=== PATIENT | male | born 1950 | race Caucasian/White ===

== ENCOUNTER 2018-03-26 08:55 | Inpatient (IN) | payer MEDICARE ==
[~2018-03-26] VITALS: Ht 180.3 cm; Wt 96.9 kg
[2018-03-26] VITALS (9 sets, daily range): BP systolic 110–155; BP diastolic 55–81; PULSE 106–115; RESP 18–24; TEMP 97.7–98.4; O2SAT 90–96
[~2018-03-26 08:55] MED LIST: ADVAI250I PO; ALBU1AER INH; ATOR10 PO; DOXY100T PO; LYRI200C PO; NICO14DI18 TD; NICO21DI24 TD; NICO7DIS18 TD; PLAV75TA PO; PRED20 PO; SPIRCAP INH
[2018-03-26] MEDS ORDERED: UMEC1AER INH (09:05)
[2018-03-26] MEDS ORDERED: ATOR10TA15 PO (09:05)
[2018-03-26] MEDS ORDERED: GABA800T PO (09:06)
--- NOTE | 2018-03-26 09:08 | PD ---
HPI Chief Complaint: Respiratory Symptoms Time Seen by Provider: 09:08 Travel History International Travel<30 days: No Contact w/Intl Traveler<30days: No Traveled to known affect area: No History of Present Illness HPI 67-year-old male came to the emergency room with history of shortness of breath that got really worse this morning when he woke up. Patient has history of COPD and says he has been coughing and bringing out greenish sputum for past few days. He has been using his inhaler but today the inhaler did not help. Patient is 1 pack per day smoker. His last ER visit and hospitalization was couple years ago. Patient does not require oxygen at home. His oxygen saturation was in the low 90s in triage. No history of chest pain. No history of ankle swelling. [facility] Past Medical History Narrative Medical List of his past medical, surgical, social and family history reviewed from the nursing note. Cancer: No Cardiac Catheterization: Yes Cardiovascular Problems: No High Cholesterol: Yes Chest Pain: No COPD: Yes Diabetes: No Diminished Hearing: No Gastrointestinal Disorders: No Glaucoma: No Hepatitis: No Hiatal Hernia: No Hypertension: No Neurologic: Yes (NUMBNESS IN BLE) Respiratory: Yes (COPD) Integumentary: No Immunizations Current: No Pneumonia: Yes Thyroid Disease: No Past Surgical History Other Surgery: Yes (hemorrhoidectomy) Social History Alcohol Use: Yes (occ) Tobacco Use: Yes (1 PPD) Substance Use: No Allergies-Medications (Allergen,Severity, Reaction): Coded Allergies: No Known Allergies (Unverified Adverse Reaction, Unknown, 03/26/18) Comments No known drug allergies. Reported Meds & Prescriptions Reported Meds & Active Scripts Active Reported Gabapentin 800 Mg Tab 800 Mg PO TID Atorvastatin (Atorvastatin Calcium) 10 Mg Tab 10 Mg PO HS Anoro Ellipta Inh (Umeclidinium/Vilanterol) 62.5-25 Mcg/Act Aero 1 Puff INH DAILY Narrative Medication List of his home medications reviewed from the nursing note. Review of Systems Except as stated in HPI: all other systems reviewed are Neg Respiratory: Positive: Shortness of Breath Physical Exam Narrative GENERAL: Awake, alert, moderate distress SKIN: Focused skin assessment warm/dry. HEAD: Atraumatic. Normocephalic. EYES: Pupils equal and round. No scleral icterus. No injection or drainage. ENT: No nasal bleeding or discharge. Mucous membranes pink and moist. NECK: Trachea midline. No JVD. CARDIOVASCULAR: Regular rate and rhythm. No murmur appreciated. RESPIRATORY: Decreased air entry bilaterally with end expiratory wheeze GASTROINTESTINAL: Abdomen soft, non-tender, nondistended. Hepatic and splenic margins not palpable. MUSCULOSKELETAL: No obvious deformities. No clubbing. No cyanosis. No edema. NEUROLOGICAL: Awake and alert. No obvious cranial nerve deficits. Motor grossly within normal limits. Normal speech. PSYCHIATRIC: Appropriate mood and affect; insight and judgment normal. Data Data Last Documented VS Vital Signs Date Time Temp Pulse Resp B/P (MAP) Pulse Ox O2 Delivery O2 Flow Rate FiO2 03/26/18 12:11 112 18 155/78 (103) 94 Nasal Cannula 2.00 03/26/18 09:18 98.4 Orders Orders Complete Blood Count With Diff (03/26/18 09:13) Basic Metabolic Panel (Bmp) (03/26/18 09:13) B-Type Natriuretic Peptide (03/26/18 09:13) Troponin I (03/26/18 09:13) Iv Access Insert/Monitor (03/26/18 09:13) Electrocardiogram (03/26/18 09:13) Ecg Monitoring (03/26/18 09:13) Oximetry (03/26/18 09:13) Oxygen Administration (03/26/18 09:13) Chest, Single Ap (03/26/18 09:13) Sodium Chloride 0.9% Flush (Ns Flush) (03/26/18 09:15) Methylprednisolone So Succ Inj (Solumedr (03/26/18 09:15) Albuterol-Ipratropium Neb (Duoneb Neb) (03/26/18 09:15) Sodium Chlor 0.9% 1000 Ml Inj (Ns 1000 M (03/26/18 10:15) Albuterol Neb (Albuterol Neb) (03/26/18 12:00) Admit Order (Ed Use Only) (03/26/18 13:25) Labs Laboratory Tests Test 03/26/18 09:20 White Blood Count 10.3 TH/MM3 Red Blood Count 4.17 MIL/MM3 Hemoglobin 13.4 GM/DL Hematocrit 40.1 % Mean Corpuscular Volume 96.2 FL Mean Corpuscular Hemoglobin 32.2 PG Mean Corpuscular Hemoglobin Concent 33.4 % Red Cell Distribution Width 12.6 % Platelet Count 220 TH/MM3 Mean Platelet Volume 8.4 FL Neutrophils (%) (Auto) 75.3 % Lymphocytes (%) (Auto) 12.2 % Monocytes (%) (Auto) 9.2 % Eosinophils (%) (Auto) 2.4 % Basophils (%) (Auto) 0.9 % Neutrophils # (Auto) 7.8 TH/MM3 Lymphocytes # (Auto) 1.3 TH/MM3 Monocytes # (Auto) 0.9 TH/MM3 Eosinophils # (Auto) 0.2 TH/MM3 Basophils # (Auto) 0.1 TH/MM3 CBC Comment DIFF FINAL Differential Comment Blood Urea Nitrogen 13 MG/DL Creatinine 1.10 MG/DL Random Glucose 111 MG/DL Calcium Level 9.0 MG/DL Sodium Level 139 MEQ/L Potassium Level 3.9 MEQ/L Chloride Level 107 MEQ/L Carbon Dioxide Level 27.1 MEQ/L Anion Gap 5 MEQ/L Estimat Glomerular Filtration Rate 67 ML/MIN Troponin I LESS THAN 0.02 NG/ML B-Type Natriuretic Peptide 44 PG/ML MDM Medical Decision Making Medical Screen Exam Complete: Yes Emergency Medical Condition: Yes Medical Record Reviewed: Yes Interpretation(s) Twelve-lead EKG was reviewed by me. Normal sinus rhythm, left axis deviation, nonspecific ST-T wave changes, tachycardia. Heart rate of 114 bpm. Differential Diagnosis Acute COPD exacerbation, CHF, pneumonia Narrative Course 1:28 PM patient was initially given 3 DuoNeb's [id number] with IV Solu- Medrol. Upon reassessment there was still an expiratory wheeze and he was given 2 more albuterol. I went back and reassessed him for the third time and air entry was slightly improved but oxygen saturation remained 92-93% with oxygen via nasal cannula. I asked the nurse to ambulate him on room air and oxygen sats dropped to 85%. I decided to admit the patient. I discussed the case with the hospitalist was accepted. Critical Care Narrative Aggregate critical care time was 30 minutes. Time to perform other separately billable procedures was not included in the critical care time. My time did not include minutes spent treating any other patients simultaneously or on activities that did not directly contribute to the patient's treatment. The services I provided to this patient were to treat and/or prevent clinically significant deterioration that could result in: Acute COPD exacerbation, respiratory distress, hypoxia I provided critical care services requiring my management, as noted below: Chart data review, documentation time, medication orders and management, vital sign assessments/reviewing monitor data, ordering and reviewing lab tests, ordering and interpreting/reviewing x-rays and diagnostic studies, care of the patient and discussion of the patient with the admitting physicians. Procedures EKG Prior to Arrival: No Diagnosis Primary Impression: Respiratory distress Additional Impressions: Hypoxia Acute exacerbation of chronic obstructive pulmonary disease (COPD) Admitting Information Admitting Physician Requests: it Raul Briggs MD March 26, 2018 09:08
[2018-03-26] MEDS ORDERED: SODIUM CHLORIDE 0.9% FLUSH 10 ML FLUSH IVF PRN (09:15)
[2018-03-26] MEDS ORDERED: methylPREDNISolone SOD SUCC 125 MG/2 ML VIAL IV PUSH ONE (09:15)
[2018-03-26] MEDS: RESP: ALBUTEROL 2.5 MG/IPRATROPIUM 0.5 MG NEB (SCH) INH ×3 (09:24→19:29)
[2018-03-26 09:30] LABS: AUTOMATED NEUTROPHIL # 7.8 TH/MM3 (1.8-7.7); BASOPHIL # 0.1 TH/MM3 (0-0.2); BASOPHIL % 0.9 % (0.0-2.0); EOSINOPHIL # 0.2 TH/MM3 (0-0.4); EOSINOPHIL % 2.4 % (0.0-4.0); HEMATOCRIT 40.1 % (39.0-51.0); HEMOGLOBIN 13.4 GM/DL (13.0-17.0); LYMPH % 12.2 % (9.0-44.0); LYMPHOCYTE # 1.3 TH/MM3 (1.0-4.8); MEAN CELL VOLUME 96.2 FL (80.0-100.0); MEAN CORPUSCULAR HEMOGLOBIN 32.2 PG (27.0-34.0); MEAN CORPUSCULAR HGB CONC 33.4 % (32.0-36.0); MEAN PLATELET VOLUME 8.4 FL (7.0-11.0); MONO % 9.2 % (0.0-8.0); MONOCYTE # 0.9 TH/MM3 (0-0.9); NEUT % 75.3 % (16.0-70.0); PLATELET COUNT 220 TH/MM3 (150-450); RED BLOOD COUNT 4.17 MIL/MM3 (4.50-5.90); RED CELL DISTRIBUTION WIDTH 12.6 % (11.6-17.2); WHITE BLOOD COUNT 10.3 TH/MM3 (4.0-11.0)
--- NOTE | 2018-03-26 09:57 | RADRPT ---
EXAM DATE: 03/26/2018 9:39 AM EDT AGE/SEX: 67 years / Male INDICATIONS: Short of breath. CLINICAL DATA: This is the patient's initial encounter. Patient reports that signs and symptoms have been present for 3 days and indicates a pain score of 0/10. MEDICAL/SURGICAL HISTORY: Chronic obstructive pulmonary disease. None. COMPARISON: No prior [facility] exams available for comparison. FINDINGS: A single AP view of the chest demonstrates the lungs to be symmetrically aerated without e vidence of mass, infiltrate or effusion. The cardiomediastinal contours are unremarkable. Osseous s tructures are intact. CONCLUSION: 1. Hyperaeration with interstitial changes bilaterally suggestive of COPD. 2. No acute pulmonary infiltrates. Electronically signed by: Jeffrey De León MD 03/26/2018 9:56 AM EDT
[2018-03-26 10:07] LABS: BICARBONATE 27.1 MEQ/L (21.0-32.0); GLUCOSE,RANDOM 111 MG/DL (74-106)
[2018-03-26 10:08] LABS: CHLORIDE 107 MEQ/L (98-107); SODIUM (NA) 139 MEQ/L (136-145)
[2018-03-26 10:10] LABS: GLOMERULAR FILTRATION RATE 67 ML/MIN (>89)
[2018-03-26 10:15] LABS: TROPONIN I LESS THAN 0.02 NG/ML (0.02-0.05)
[2018-03-26] MEDS ORDERED: SODIUM CHLOR 0.9% 1000 ML INJ 1,000 ML IV ONE (10:15)
[2018-03-26 10:18] LABS: BLOOD UREA NITROGEN 13 MG/DL (7-18)
[2018-03-26] MEDS: RESP: ALBUTEROL 2.5 MG/3 ML NEB (SCH) INH (11:59)
[2018-03-26] MEDS ORDERED: RESP: ALBUTEROL 2.5 MG/3 ML NEB (PRN) INH (13:45)
[2018-03-26] MEDS ORDERED: SODIUM CHLORIDE 0.9% FLUSH 10 ML FLUSH IV FLUSH PRN (13:45)
[2018-03-26] MEDS: methylPREDNISolone SOD SUCC 125 MG/2 ML VIAL IV PUSH SCH ×2 (14:53→21:32)
[2018-03-26] MEDS: ENOXAPARIN SODIUM 40 MG/0.4 ML SYRINGE SQ SCH (14:54)
[2018-03-26] MEDS ORDERED: LEVOFLOXACIN 750 MG PREMIX INJ 150 ML IV SCH (16:00)
--- NOTE | 2018-03-26 16:00 | HHI.HP ---
[facility]ician Bay Thomason M.D. Admission Diagnosis Acute COPD exacerbation, hypoxia Diagnoses: Chief Complaint: Short of breath Travel History International Travel<30 Days: No Contact w/Intl Traveler <30 Da: No Traveled to Known Affected Are: No History of Present Illness This patient is a 67-year-old gentleman with history of COPD who comes in with increased work of breathing over the last several days and worse today. Is associated with coughing and green sputum. He is using his inhaler but noted that it was progressive. He continues to smoke a pack a day although he recently started Chantix. He does not use oxygen at home and was 85% on room air here. Patient did improve somewhat with nebulized bronchodilators but still working very hard to breathe and recommended for further admission due to respiratory failure. Review of Systems Constitutional: DENIES: Diaphoretic episodes, Fatigue, Fever, Weight gain, Weight loss, Chills, Dizziness, Change in appetite, Night Sweats Endocrine: DENIES: Heat/cold intolerance, Polydipsia, Polyuria, Polyphagia Eyes: DENIES: Blurred vision, Diplopia, Eye inflammation, Eye pain, Vision loss , Photosensitivity, Double Vision Ears, nose, mouth, throat: DENIES: Tinnitus, Hearing loss, Vertigo, Nasal discharge, Oral lesions, Throat pain, Hoarseness, Ear Pain, Running Nose, Epistaxis, Sinus Pain, Toothache, Odynophagia Respiratory: COMPLAINS OF: Cough, Shortness of breath, DENIES: Apneas, Snoring , Wheezing, Hemoptysis, Sputum production Cardiovascular: COMPLAINS OF: Dyspnea on Exertion, DENIES: Chest pain, Palpitations, Syncope, PND, Lower Extremity Edema, Orthopnea, Claudication Gastrointestinal: DENIES: Abdominal pain, Black stools, Bloody stools, Constipation, Diarrhea, Nausea, Vomiting, Difficulty Swallowing, Anorexia Genitourinary: DENIES: Sexual dysfunction, Urinary frequency, Urinary incontinence, Urgency, Hematuria, Dysuria, Nocturia, Penile Discharge, Testicular Pain, Testicular Swelling Musculoskeletal: DENIES: Joint pain, Muscle aches, Stiffness, Joint Swelling, Back pain, Neck pain Integumentary: DENIES: Abnormal pigmentation, Nail changes, Pruritus, Rash Hematologic/lymphatic: DENIES: Bruising, Lymphadenopathy Immunologic/allergic: DENIES: Eczema, Urticaria Neurologic: DENIES: Abnormal gait, Headache, Localized weakness, Paresthesias, Seizures, Speech Problems, Tremor, Poor Balance Psychiatric: DENIES: Anxiety, Confusion, Mood changes, Depression, Hallucinations, Agitation, Suicidal Ideation, Homicidal Ideation, Delusions Except as stated in HPI: all other systems reviewed are Neg Past Family Social History Past Medical History COPD Tobacco dependency Vascular insufficiency Hyperlipidemia and neuropathy Past Surgical History Hernia repair Hemorrhoidectomy Left vascular stent placement Reported Medications Reviewed in the EMR, also on Chantix Allergies: Coded Allergies: No Known Allergies (Unverified Allergy, Unknown, 03/26/18) Active Ordered Medications Reviewed in the EMR Family History Mother from a stroke, father from a coal mining [facility] Social History Patient smokes a pack a day, lives alone and occasional alcohol Physical Exam Vital Signs Vital Signs Date Time Temp Pulse Resp B/P (MAP) Pulse Ox O2 Delivery O2 Flow Rate FiO2 03/26/18 14:59 112 18 152/76 (101) 94 Nasal Cannula 2.00 03/26/18 12:11 112 18 155/78 (103) 94 Nasal Cannula 2.00 03/26/18 10:18 113 18 144/81 (102) 95 Nasal Cannula 2.00 03/26/18 09:25 95 Nasal Cannula 2.00 03/26/18 09:18 98.4 115 20 142/81 (101) 90 03/26/18 09:16 20 96 Nasal Cannula 2.00 03/26/18 09:15 96 Nasal Cannula 2.00 03/26/18 09:13 90 Nasal Cannula 2.00 Physical Exam GENERAL: This is a well-nourished, well-developed patient, who is short of breath with pursed lip breathing SKIN: No rashes, ecchymoses or lesions. Cool and dry. HEAD: Atraumatic. Normocephalic. No temporal or scalp tenderness. EYES: Pupils equal round and reactive. Extraocular motions intact. No scleral icterus. No injection or drainage. ENT: Nose without bleeding, purulent drainage or septal hematoma. Throat without erythema, tonsillar hypertrophy or exudate. Uvula midline. Airway patent. NECK: Trachea midline. No JVD or lymphadenopathy. Supple, nontender, no meningeal signs. CARDIOVASCULAR: Regular rate and rhythm without murmurs, gallops, or rubs. RESPIRATORY: Tachypneic with scattered wheezes GASTROINTESTINAL: Abdomen soft, non-tender, nondistended. No hepato-splenomegaly , or palpable masses. No guarding. MUSCULOSKELETAL: Extremities without clubbing, cyanosis, or edema. No joint tenderness, effusion, or edema noted. No calf tenderness. Negative Homans sign bilaterally. NEUROLOGICAL: Awake and alert. Cranial nerves II through XII intact. Motor and sensory grossly within normal limits. Five out of 5 muscle strength in all muscle groups. Normal speech. Laboratory Laboratory Tests Test 03/26/18 09:20 03/26/18 14:25 White Blood Count 10.3 Red Blood Count 4.17 Hemoglobin 13.4 Hematocrit 40.1 Mean Corpuscular Volume 96.2 Mean Corpuscular Hemoglobin 32.2 Mean Corpuscular Hemoglobin Concent 33.4 Red Cell Distribution Width 12.6 Platelet Count 220 Mean Platelet Volume 8.4 Neutrophils (%) (Auto) 75.3 Lymphocytes (%) (Auto) 12.2 Monocytes (%) (Auto) 9.2 Eosinophils (%) (Auto) 2.4 Basophils (%) (Auto) 0.9 Neutrophils # (Auto) 7.8 Lymphocytes # (Auto) 1.3 Monocytes # (Auto) 0.9 Eosinophils # (Auto) 0.2 Basophils # (Auto) 0.1 CBC Comment DIFF FINAL Differential Comment Blood Urea Nitrogen 13 Creatinine 1.10 Random Glucose 111 Calcium Level 9.0 Sodium Level 139 Potassium Level 3.9 Chloride Level 107 Carbon Dioxide Level 27.1 Anion Gap 5 Estimat Glomerular Filtration Rate 67 Troponin I LESS THAN 0.02 B-Type Natriuretic Peptide 44 Blood Gas Puncture Site RT RADIAL Blood Gas Patient Temperature 37.0 Blood Gas HCO3 22 Blood Gas Base Excess -2.6 Blood Gas Oxygen Saturation 91 Arterial Blood pH 7.34 Arterial Blood Partial Pressure CO2 42 Arterial Blood Partial Pressure O2 70 Arterial Blood Oxygen Content 17.8 Arterial Blood Carboxyhemoglobin 2.8 Arterial Blood Methemoglobin 1.2 Blood Gas Hemoglobin 13.9 Oxygen Delivery Device NASAL CANNULA Blood Gas Liter Flow 2 Result Diagram: 03/26/1891903/26/18919 Imaging Chest x-ray on my review shows no acute cardiopulmonary disease there is evidence of hyperaeration Septic Shock Reassessment Septic shock perfusion: reassessment completed Caprini VTE Risk Assessment Caprini VTE Risk Assessment: Mod/High Risk (score >= 2) Caprini Risk Assessment Model Point Value = 1 Point Value = 2 Point Value = 3 Point Value = 5 Age 41-60 Minor surgery BMI > 25 kg/m2 Swollen legs Varicose veins or History of unexplained or recurrent spontaneous Oral contraceptives or hormone replacement Sepsis (< 1 month) Serious lung disease, including pneumonia (< 1 month) Abnormal pulmonary function Acute myocardial infarction Congestive heart failure (< 1 month) History of inflammatory bowel disease Medical patient at bed rest Age 61-74 Arthroscopic surgery Major open surgery (> 45 min) Laparoscopic surgery (> 45 min) Malignancy Confined to bed (> 72 hours) Immobilizing plaster cast Central venous access Age >= 75 History of VTE Family history of VTE Factor V Leiden Prothrombin [id number] Lupus anticoagulant Anticardiolipin antibodies Elevated serum homocysteine Heparin-induced thrombocytopenia Other congenital or acquired thrombophilia Stroke (< 1 month) Elective arthroplasty Hip, pelvis, or leg fracture Acute spinal cord injury (< 1 month) Prophylaxis Regimen Total Risk Factor Score Risk Level Prophylaxis Regimen 0-1 Low Early ambulation 2 Moderate Order ONE of the following: *Sequential Compression Device (SCD) *Heparin 5000 units SQ BID 3-4 Higher Order ONE of the following medications: *Heparin 5000 units SQ TID *Enoxaparin/Lovenox 40 mg SQ daily (WT < 150 kg, CrCl > 30 mL/min) *Enoxaparin/Lovenox 30 mg SQ daily (WT < 150 kg, CrCl > 10-29 mL/min) *Enoxaparin/Lovenox 30 mg SQ BID (WT < 150 kg, CrCl > 30 mL/min) AND/OR *Sequential Compression Device (SCD) 5 or more Highest Order ONE of the following medications: *Heparin 5000 units SQ TID (Preferred with Epidurals) *Enoxaparin/Lovenox 40 mg SQ daily (WT < 150 kg, CrCl > 30 mL/min) *Enoxaparin/Lovenox 30 mg SQ daily (WT < 150 kg, CrCl > 10-29 mL/min) *Enoxaparin/Lovenox 30 mg SQ BID (WT < 150 kg, CrCl > 30 mL/min) AND *Sequential Compression Device (SCD) Assessment and Plan Problem List: (1) COPD exacerbation ICD Code: J44.1 - COPD exacerbation Status: Acute Plan: With evidence of acute respiratory failure secondary to hypoxemia of 85% Continue with nebulized bronchodilators IV steroids to taper Continue empiric antibiotics Follow-up O2 (2) Dyspnea on exertion ICD Code: R06.09 - Dyspnea on exertion Status: Acute Plan: Secondary to COPD exacerbation (3) Tobacco abuse ICD Code: Z72.0 - Tobacco abuse Status: Acute Plan: Patient currently on Chantix which we will continue the patient does plan to discontinue tobacco Assessment and Plan Plan of care to be determined by hospital course Code Status full code Discussed Condition With ER MD, patient Physician Certification 2 Midnight Certification Type: Admission for Inpatient Services Order for Inpatient Services The services are ordered in accordance with Medicare regulations or non- Medicare payer requirements, as applicable. In the case of services not specified as inpatient-only, they are appropriately provided as inpatient services in accordance with the 2-midnight benchmark. Estimated LOS (days): 2 2 days is the estimated time the patient will need to remain in the hospital, assuming treatment plan goals are met and no additional complications. Post-Hospital Plan: Carolyn Jones MD March 26, 2018 16:00
--- NOTE | 2018-03-26 17:01 | EKG ---
Date Performed: 03/26/2018 Time Performed: 09:02:22 PTAGE: 67 years EKG: SINUS TACHYCARDIA POSSIBLE LEFT ATRIAL ENLARGEMENT SEPTAL MYOCARDIAL INFARCTION ABNORMAL EC G PREVIOUS TRACING : 12/29/2013 13.20 Since the previous tracing, no significant change noted DOCTOR: Yanci Flores Interpretating Date/Time 03/26/2018 17:00:12
[2018-03-26] MEDS: GABAPENTIN 400 MG CAP PO SCH (18:00)
[2018-03-26] MEDS: SODIUM CHLORIDE 0.9% FLUSH 10 ML FLUSH IV FLUSH SCH (21:33)
[2018-03-26] MEDS: ATORVASTATIN 10 MG TAB PO SCH (21:34)
[2018-03-27] VITALS (7 sets, daily range): BP systolic 98–118; BP diastolic 53–71; PULSE 92–101; RESP 18–20; TEMP 96.3–97.5; O2SAT 91–95
[2018-03-27] MEDS: methylPREDNISolone SOD SUCC 125 MG/2 ML VIAL IV PUSH SCH ×3 (03:07→14:52)
[2018-03-27] MEDS: RESP: ALBUTEROL 2.5 MG/IPRATROPIUM 0.5 MG NEB (SCH) INH ×3 (07:32→19:41)
[2018-03-27] MEDS: GABAPENTIN 400 MG CAP PO SCH ×3 (07:58→17:37)
[2018-03-27] MEDS: SODIUM CHLORIDE 0.9% FLUSH 10 ML FLUSH IV FLUSH SCH ×2 (07:58→22:11)
[2018-03-27] MEDS: UMECLIDINIUM 62.5 MCG/VILANTEROL 25 MCG INHALER INH SCH (09:47)
--- NOTE | 2018-03-27 10:32 | HHI.PR ---
Subjective Remarks Patient seen and evaluated in follow-up for COPD exacerbation. Still hypoxemic at 84% post exertional room air testing. Patient with improvement in wheezes although he is still somewhat short of breath. Objective Vitals Vital Signs Date Time Temp Pulse Resp B/P (MAP) Pulse Ox O2 Delivery O2 Flow Rate FiO2 03/27/18 07:54 2.00 03/27/18 07:50 96.3 95 20 111/71 (84) 93 03/27/18 07:34 91 21 03/27/18 00:00 97.2 92 18 108/55 (72) 92 03/26/18 20:07 98.2 106 18 111/55 (73) 95 03/26/18 19:29 92 Nasal Cannula 2.00 03/26/18 16:00 97.7 110 24 110/63 (79) 94 03/26/18 14:59 112 18 152/76 (101) 94 Nasal Cannula 2.00 03/26/18 12:11 112 18 155/78 (103) 94 Nasal Cannula 2.00 I/O 03/26/18 03/26/18 03/26/18 03/27/18 03/27/18 03/27/18 07:00 15:00 23:00 07:00 15:00 23:00 Intake Total 1000 ml 930 ml 240 ml Balance 1000 ml 930 ml 240 ml Intake Oral 780 ml 240 ml IV Total 1000 ml 150 ml # Voids 2 3 # Bowel Movements 0 Result Diagram: 03/26/18 0920 03/26/18 0920 Imaging Chest x-ray shows hyperaeration without infiltrate Objective Remarks GENERAL: This is a well-nourished, well-developed patient, in no apparent distress. CARDIOVASCULAR: Regular rate and rhythm without murmurs, gallops, or rubs. RESPIRATORY: Scattered wheezes without rhonchi GASTROINTESTINAL: Abdomen soft, non-tender, nondistended. Normal active bowel sounds MUSCULOSKELETAL: Extremities without clubbing, cyanosis, or edema. NEURO: Alert & Oriented x4 to person, place, time, situation. Moves all ext x4 A/P Problem List: (1) COPD exacerbation ICD Code: J44.1 - COPD exacerbation Status: Acute Plan: With evidence of acute respiratory failure secondary to hypoxemia of 84% Continue with nebulized bronchodilators IV steroids to taper Continue empiric antibiotics Follow-up O2 Pulmonary consult pending (2) Dyspnea on exertion ICD Code: R06.09 - Dyspnea on exertion Status: Acute Plan: Secondary to COPD exacerbation (3) Tobacco abuse ICD Code: Z72.0 - Tobacco abuse Status: Acute Plan: Patient currently on Chantix which we will continue the patient does plan to discontinue tobacco Discharge Planning Likely discharge in a.m., may need home O2 if no improvement Carolyn Sharma MD March 27, 2018 10:32
[2018-03-27] MEDS: VARENICLINE 1 MG TAB PO SCH ×2 (10:55→22:26)
--- NOTE | 2018-03-27 13:57 | MB ---
cc: Demond Diaz MD DATE: 03/27/2018 HISTORY OF PRESENT ILLNESS: Mr. Rodriguez is a 67-year-old white male who presented to the emergency room yesterday with increasing shortness of breath. He has a known history of COPD. He has smoked over 50 pack years, continues to smoke 1-2 packs per day now, although he is now trying to quit after a recent prescription for Chantix. He is followed by Dr. Thomason as an outpatient. He was admitted, placed on intravenous steroids, aerosolized bronchodilators and oxygen for an O2 saturation of 85%, and he is feeling much better today. His chest x-ray was unremarkable with hyperinflation and some chronic interstitial changes but nothing acute. On laboratory, white count was 10,000; hemoglobin 13; platelets 220. Arterial blood gas on 2 liters pO2 of 70, pH of 7.34, pCO2 of 242 and serum chemistries including BUN and creatinine were normal. BNP was 44. The patient has had one emergency room visit in the past for a similar episode, but no hospitalizations. No history of pneumonia or thromboembolic disease. No history of cancer. PAST MEDICAL AND SURGICAL HISTORY: Peripheral arterial disease. He had a stent placed several years ago in the left femoral artery at [facility]. No other major surgeries other than a hernia repair and hemorrhoidectomy. ALLERGIES: NONE KNOWN. SOCIAL HISTORY: He is , lives alone, has 2 children, both in good health. 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 Drinks about 4-6 beers twice a week when he plays golf. Smoking noted. Originally from [place], has lived in this area since skilled nursing. REVIEW OF SYSTEMS: No chest pain. No hemoptysis. No recent purulent sputum. No fever. No abdominal complaints or diarrhea. No chronic edema, orthopnea or PND. PHYSICAL EXAMINATION: GENERAL: No distress at rest. VITAL SIGNS: Temperature 98 degrees, blood pressure 110/70, respirations are 16, pulse is 90 and O2 saturation is 93-95% on 2 liters. HEENT: Sclerae are anicteric. Mucous membranes are moist. NECK: Neck veins are flat. LYMPHATICS: No adenopathy in the neck or supraclavicular region. LUNGS: His chest is actually clear. No wheezes or rales. No congestion. HEART: Regular rhythm. No harsh murmur. ABDOMEN: Soft. EXTREMITIES: He has no edema or calf tenderness. No cyanosis or clubbing. DISCUSSION: Mr. Rodriguez presents with a history of chronic obstructive pulmonary disease. No formal documentation by pulmonary function, but chest x-ray is certainly consistent and he has been a heavy smoker his entire adult life. He understands the importance of stopping smoking. He is trying now with Chantix prescribed by his primary physician. He has responded very well to his initial therapy with aerosol therapy, oral Levaquin and methylprednisolone. I have suggested to him that if he is feeling well tomorrow, he could be switched to oral prednisone, continued on 5-7 days of Levaquin. He takes Anoro at home, which I think would be fine to continue and discharge him on a tapering course of prednisone with followup with his primary care physician. Again, the most important thing at this point is to discontinue his smoking habit, which he understands and seems committed to doing. I will not follow him routinely since he is feeling so much better today. If I can be of further assistance during this hospitalization, please let me know. R. MD ANAMARIA Peters/TRACI , 01:34 PM , 01:57 PM
[2018-03-27] MEDS: ENOXAPARIN SODIUM 40 MG/0.4 ML SYRINGE SQ SCH (14:53)
[2018-03-27] MEDS ORDERED: OXYGENDME NAS.CANULA (15:10)
--- NOTE | 2018-03-27 15:11 | HHI.DCPOC ---
Discharge Care Plan Diagnosis: (1) Dyspnea on exertion (2) COPD exacerbation Goals to Promote Your Health * To prevent worsening of your condition and complications * To maintain your health at the optimal level Directions to Meet Your Goals Take your medications as prescribed Follow your dietary instruction Follow activity as directed Keep your appointments as scheduled Take your immunizations and boosters as scheduled If your symptoms worsen call your PCP, if no PCP go to Urgent Care Center or Emergency Room Smoking is Dangerous to Your Health. Avoid second hand smoke Call the 24-hour hour crisis hotline for domestic abuse at Carolyn Sharma MD March 27, 2018 15:11
[2018-03-27] MEDS ORDERED: NEBULIZER1 MI1 (15:12)
[2018-03-27] MEDS ORDERED: PRED20 PO (15:12)
[2018-03-27] MEDS ORDERED: ALBU0.08 NEB (15:12)
[2018-03-27] MEDS ORDERED: LEVOFLOXACIN 750 MG TAB PO SCH (16:00)
[2018-03-27] MEDS: predniSONE 20 MG TAB PO SCH (22:11)
[2018-03-27] MEDS: BUDESONIDE-FORMOTEROL 80/4.5 MCG INHALER INH SCH (22:11)
[2018-03-27] MEDS: ATORVASTATIN 10 MG TAB PO SCH (22:11)
[2018-03-28 00:10] VITALS: BP 110/67; PULSE 20; RESP 20; TEMP 97; O2SAT 94
[2018-03-28 07:00] VITALS: BP 109/61; PULSE 73; RESP 18; TEMP 96.1; O2SAT 96
[2018-03-28] MEDS: RESP: ALBUTEROL 2.5 MG/IPRATROPIUM 0.5 MG NEB (SCH) INH ×2 (07:38→14:32)
[2018-03-28 07:40] VITALS: O2SAT 95
[2018-03-28] MEDS: predniSONE 20 MG TAB PO SCH (09:15)
[2018-03-28] MEDS: BUDESONIDE-FORMOTEROL 80/4.5 MCG INHALER INH SCH (09:15)
[2018-03-28] MEDS: GABAPENTIN 400 MG CAP PO SCH ×2 (09:15→14:14)
[2018-03-28] MEDS: VARENICLINE 1 MG TAB PO SCH (09:15)
[2018-03-28] MEDS: UMECLIDINIUM 62.5 MCG/VILANTEROL 25 MCG INHALER INH SCH (09:16)
[2018-03-28] MEDS: SODIUM CHLORIDE 0.9% FLUSH 10 ML FLUSH IV FLUSH SCH (09:20)
[2018-03-28 11:41] VITALS: BP 105/53; PULSE 62; RESP 18; TEMP 96.2; O2SAT 96
--- NOTE | 2018-03-28 12:55 | HHI.PR ---
Subjective Remarks Follow-up COPD exacerbation March 28, 2080-patient seen and examined, reported improvement of shortness of breath. Currently denies any chest pain. No acute event overnight. Tolerated p.o. without any Nausea Vomiting. Looking for Discharge Home. Objective Vitals Vital Signs Date Time Temp Pulse Resp B/P (MAP) Pulse Ox O2 Delivery O2 Flow Rate FiO2 03/28/18 11:41 96.2 62 18 105/53 (70) 96 03/28/18 07:40 95 Nasal Cannula 2.00 03/28/18 07:00 96.1 73 18 109/61 (77) 96 03/28/18 00:10 97.0 20 20 110/67 (81) 94 03/27/18 20:27 97.0 93 20 118/70 (86) 94 03/27/18 19:41 92 Nasal Cannula 2.00 03/27/18 15:00 96.7 98 18 103/53 (70) 95 I/O 03/27/18 03/27/18 03/27/18 03/28/18 03/28/18 03/28/18 07:00 15:00 23:00 07:00 15:00 23:00 Intake Total 240 ml 480 ml Balance 240 ml 480 ml Intake Oral 240 ml 480 ml # Voids 3 3 2 # Bowel Movements 1 Result Diagram: 03/26/1891903/26/18919 Imaging Last Impressions Chest X-Ray 03/26/18912 Signed Impressions: CONCLUSION: 1. Hyperaeration with interstitial changes bilaterally suggestive of COPD. 2. No acute pulmonary infiltrates. Objective Remarks GENERAL: NAD SKIN: Warm and dry. HEAD: Normocephalic. EYES: No scleral icterus. No injection or drainage. NECK: Supple, trachea midline. No JVD or lymphadenopathy. CARDIOVASCULAR: Regular rate and rhythm without murmurs, gallops, or rubs. RESPIRATORY: Breath sounds equal bilaterally. No accessory muscle use. GASTROINTESTINAL: Abdomen soft, non-tender, nondistended. MUSCULOSKELETAL: No cyanosis, or edema. BACK: Nontender without obvious deformity. No CVA tenderness. A/P Problem List: (1) COPD exacerbation ICD Code: J44.1 - COPD exacerbation Status: Acute (2) Dyspnea on exertion ICD Code: R06.09 - Dyspnea on exertion Status: Acute (3) Tobacco abuse ICD Code: Z72.0 - Tobacco abuse Status: Acute Assessment and Plan 67-year-old man with COPD exacerbation Improving, and patient currently on IV Solu-Medrol, bronchodilator, antibiotic Appreciate input from pulmonary medicine Tobacco cessation strongly advised Tobacco abuse Tobacco counseling provided DVT prophylaxis: Bilateral SCDs Tc Hopson MD March 28, 2018 12:55
[2018-03-28] MEDS ORDERED: LEVA750T9 PO (12:58)
[2018-03-28] MEDS ORDERED: Budeson-Formot 80-4.5 Mcg Inh INH (12:58)
[2018-03-28] MEDS ORDERED: VENTAER INH (12:59)
[2018-03-28] MEDS ORDERED: SPIRCAP INH (12:59)
[2018-03-28] MEDS ORDERED: IPRA17I INH (12:59)
--- NOTE | 2018-03-28 13:01 | HHI.DS ---
Discharge Summary Admission Date March 26, 2018 at 13:26 Discharge Date: March 28, 2018 Admitting Diagnosis Acute COPD exacerbation, hypoxia (1) COPD exacerbation ICD Code: J44.1 - COPD exacerbation Status: Acute (2) Dyspnea on exertion ICD Code: R06.09 - Dyspnea on exertion Status: Acute (3) Tobacco abuse ICD Code: Z72.0 - Tobacco abuse Status: Acute Procedures None Brief History - From Admission This patient is a 67-year-old gentleman with history of COPD who comes in with increased work of breathing over the last several days and worse today. Is associated with coughing and green sputum. He is using his inhaler but noted that it was progressive. He continues to smoke a pack a day although he recently started Chantix. He does not use oxygen at home and was 85% on room air here. Patient did improve somewhat with nebulized bronchodilators but still working very hard to breathe and recommended for further admission due to respiratory failure. CBC/BMP: 03/26/18 0920 03/26/18 0920 Significant Findings Laboratory Tests Test 03/26/18 09:20 03/26/18 14:25 Red Blood Count 4.17 MIL/MM3 (4.50-5.90) Neutrophils (%) (Auto) 75.3 % (16.0-70.0) Monocytes (%) (Auto) 9.2 % (0.0-8.0) Neutrophils # (Auto) 7.8 TH/MM3 (1.8-7.7) Random Glucose 111 MG/DL (74-106) Estimat Glomerular Filtration Rate 67 ML/MIN (>89) Troponin I LESS THAN 0.02 NG/ML Blood Gas Base Excess -2.6 mmol/L (-2-2) Arterial Blood pH 7.34 (7.380-7.420) PE at Discharge GENERAL: NAD SKIN: Warm and dry. HEAD: Normocephalic. EYES: No scleral icterus. No injection or drainage. NECK: Supple, trachea midline. No JVD or lymphadenopathy. CARDIOVASCULAR: Regular rate and rhythm without murmurs, gallops, or rubs. RESPIRATORY: Breath sounds equal bilaterally. No accessory muscle use. GASTROINTESTINAL: Abdomen soft, non-tender, nondistended. MUSCULOSKELETAL: No cyanosis, or edema. BACK: Nontender without obvious deformity. No CVA tenderness. Hospital Course He was admitted for COPD exacerbation for which she was started on IV Solu- Medrol, bronchodilator and antibiotics with consultation to pulmonary medicine. Patient conditions improvement vital remained stable. Prior to discharge patient was switched to p.o. steroid. DVT and GI prophylaxis were provided. Pt Condition on Discharge: Good Discharge Disposition: Discharge Home Discharge Time: <= 30 minutes Discharge Instructions DIET: Follow Instructions for: Heart Healthy Diet Activities you can perform: Regular-No Restrictions Follow up Referrals: Pulmonology - 3 Weeks with Demond Diaz MD New Medications: Albuterol 18 GM Inh (Ventolin Hfa 18 GM Inh) 90 Mcg/Act Aer 2 PUFF INH Q4-6H PRN for SHORTNESS OF BREATH, #1 INHALER 3 Refills Albuterol Neb (Albuterol Neb) 2.5 Mg/3 Ml Neb 2.5 MG NEB Q4HR NEB PRN for SHORTNESS OF BREATH, #60 NEBULE 0 Refills Ipratropium HFA 12.9 GM Inh (Atrovent HFA 12.9 GM Inh) 17 Mcg/Actuation Aer 2 PUFF INH Q6HR PRN for SHORTNESS OF BREATH, #1 INHALER 3 Refills Nebulizer (Nebulizer) 1 Mis Mis EA .XX DIRECTED for Breathing Treatment, #1 0 Refills Oxygen (O2) (Oxygen (O2)) Device LITER MICHAEL.CANULA CONTINUOUS for Prevent Hypoxemia, #2 Oxygen Concentrator Portable Gaseous 2 L/min via Nasal Canula Continuous For 99 months npi [id number] Prednisone (Prednisone) 20 Mg Tab 20 MG PO DIRECTED for Inflammation, #15 TAB 0 Refills 40 MG twice a day x 3 days, then 20 MG daily x 3 days, then 10 MG daily x 3 days Tiotropium Inh (Spiriva Handihaler) 18 Mcg Cap 18 MCG INH DAILY for COPD, #30 CAP 3 Refills 1 capsule = 18 mcg Levofloxacin (Levaquin) 750 Mg Tablet 750 MG PO DAILY@1600 for Infection, #7 MG [Budeson-Formot 80-4.5 Mcg Inh] () 60 PUFF AERO 1 PUFF INH Q12HR for Breathing Treatment, #1 3 Refills Continued Medications: Atorvastatin (Atorvastatin) 10 Mg Tab 10 MG PO HS for Cholesterol Management, #30 TAB 0 Refills Gabapentin (Gabapentin) 800 Mg Tab 800 MG PO TID, #90 TAB 0 Refills Umeclidinium-Vilanterol Inh (Anoro Ellipta Inh) 62.5-25 Mcg/Act Aero 1 PUFF INH DAILY for COPD, #1 INHALER 0 Refills Tc Hopson MD March 28, 2018 13:01
[2018-03-28 15:58] VITALS: BP 133/66; PULSE 88; RESP 18; TEMP 97.1; O2SAT 96
== END 2018-03-28 16:07 | disposition home or self-care (01) | DRG 189 ==
LOC: PHED 08:55 → PHEDA 13:26 → PH3B 15:01
PROVIDERS: ADMIT Hospitalist; ATTEND Hospitalist
DX: J96.01 Acute respiratory failure with hypoxia (principal); J44.1 Chronic obstructive pulmonary disease with (acute) exacerbation; E78.5 Hyperlipidemia, unspecified; G62.9 Polyneuropathy, unspecified; I73.9 Peripheral vascular disease, unspecified; F17.210 Nicotine dependence, cigarettes, uncomplicated
CPT/HCPCS: 36600; 71045; 80048; 82805; 83880; 84484; 85025; 93005; 94150; 94618; 94640; 94664; 96361; 96374; J1650; J1956; J2930; J7030; J7512; J7613